=== PATIENT | male | born 1945 | race Caucasian/White ===

== ENCOUNTER 2020-12-08 20:49 | Emergency (ER) | payer OTHER, MEDICARE ==
[~2020-12-08] VITALS: Ht 182.9 cm; Wt 99.8 kg
== END 2020-12-09 02:04 ==
LOC: ER 20:49
DX: I46.9 Cardiac arrest, cause unspecified (principal); E11.22 Type 2 diabetes mellitus with diabetic chronic kidney disease; N18.6 End stage renal disease